=== PATIENT | male | born 1990 | race Caucasian/White ===

== ENCOUNTER → 2020-06-10 | Outpatient (CLI) | payer BC ==
[~2020-06-10] MED LIST: ASPIRIN CHEWABL81 MG PO; GLUCOPHAGE1000 MG PO; LEXAPRO10 MG PO; TOPAMAX25 MG PO; ZESTRIL2.5 MG PO; ZOCOR20 MG PO
== END ==
LOC: RAD 10:41
DX: K59.00 Constipation, unspecified (principal)
CPT/HCPCS: 74018